=== PATIENT | male | born 1965 | race Caucasian/White ===

== ENCOUNTER → 2018-10-03 | Outpatient (CLI) | payer OTHER ==
[~2018-10-03] MED LIST: METHACHOLINE KIT (J7674) INH ONE
--- NOTE | 2018-10-03 14:38 | PFTRPT ---
Height: 70.00 Inches Weight: 243.00 Lbs BSA: 2.27 Diagnosis: R05 DATE OF PROCEDURE: 10/03/2018 ORDERED BY: Dr. Christianson INTERPRETATION: Study of excellent technical quality. Under protocol, methacholine administered. Even after a maximal dose of 25 mg or 188.875 CDUs, no provocation dose ever achieved. IMPRESSION: Negative methacholine challenge study. MTDD
== END ==
LOC: M CARPUL 07:21
PROVIDERS: ATTEND Internal Medicine Pulmonary Disease
DX: R05 Cough (principal)
CPT/HCPCS: 94070; 95070; J7674

== ENCOUNTER → 2019-01-01 | Outpatient (REF) | payer OTHER | LOC: M LAB LCGH 11:51 | PROVIDERS: ATTEND Nurse Practitioner Family | DX: L91.8 Other hypertrophic disorders of the skin (principal); R83.8 Other abnormal findings in cerebrospinal fluid ==